=== PATIENT | male | born 1985 | race Caucasian/White ===

== ENCOUNTER 2023-12-12 02:50 | Emergency (ER) | payer MEDICAID ==
[~2023-12-12] VITALS: Ht 182.9 cm; Wt 88.5 kg
[2023-12-12] MEDS ORDERED: KETOROLAC TROMETHAMINE INJ 30 MG/ML VIAL ONE (06:32)
[2023-12-12] MEDS ORDERED: ONDANSETRON 4 MG TAB.RAPDIS ONE (06:32)
[2023-12-12] MEDS ORDERED: MORPHINE SULFATE INJ 2 MG/ML DISP.SYRIN ONE (06:32)
[2023-12-12] MEDS: KETOROLAC TROMETHAMINE INJ 30 MG/ML VIAL IM ONE (06:42)
[2023-12-12] MEDS: MORPHINE SULFATE INJ 2 MG/ML DISP.SYRIN IM ONE (06:42)
[2023-12-12] MEDS: ONDANSETRON 4 MG TAB.RAPDIS PO ONE (06:43)
[2023-12-12] MEDS ORDERED: OXYC-128 PO (09:19)
[2023-12-12] MEDS ORDERED: IBUP-1490 PO (09:19)
[2023-12-12 09:58] VITALS: BP 142/84; TEMP 98.8; O2SAT 98
== END 2023-12-12 09:59 | disposition home or self-care (01) ==
LOC: ER 02:56
DX: S82.891A Other fracture of right lower leg, initial encounter for closed fracture (principal); X50.1XXA Overexertion from prolonged static or awkward postures, initial encounter; Y93.89 Activity, other specified; Y92.89 Other specified places as the place of occurrence of the external cause; Y99.8 Other external cause status
CPT/HCPCS: 99285; 29515; 73610; 73564; J1885; Q0162; J2270

== ENCOUNTER 2023-12-14 20:43 | Emergency (ER) | payer MEDICAID ==
[~2023-12-14] VITALS: Ht 182.9 cm; Wt 88.5 kg
[~2023-12-14 20:43] MED LIST: IBUP-1490 PO; OXYC-128 PO
[2023-12-14 21:40] VITALS: BP 132/65; TEMP 98.1; O2SAT 95
== END 2023-12-14 22:09 | disposition home or self-care (01) ==
LOC: ER 20:48
DX: S82.854D Nondisplaced trimalleolar fracture of right lower leg, subsequent encounter for closed fracture with routine healing (principal); Z48.00 Encounter for change or removal of nonsurgical wound dressing; X58.XXXD Exposure to other specified factors, subsequent encounter